=== PATIENT | male | born 1950 | race Caucasian/White ===

== ENCOUNTER 2021-11-21 16:17 | Inpatient (IN) | payer OTHER, MEDICAID ==
[~2021-11-21] VITALS: Ht 170.2 cm; Wt 44.0 kg
[~2021-11-21 16:17] MED LIST: CEPH500C16 PO; CLIN300C2 PO; SYN.1 PO
[2021-11-21 16:26] VITALS: BP 140/90
--- NOTE | 2021-11-21 17:50 | NUR ---
71YO MALE PT BIBA FROM [place] FOR HOME C/O N/V AND SOB XTODAY. PT REPORTS N/D SINCE THE MORNING , UNABLE TO GIVE xEPISODES - DENIES BLOOD. UPON ARRIVAL PT ON 15L NC W/ O2 AT 92%. PER [facility] ,AT ARRIVAL PT WAS AT 50-60% W/O OXYGEN. AUDIBLE MONTSERRAT WHEEZING/CRACKLES NOTED. PT DENIES PAIN, DIARRHEA, FEVER OR CHILLS. STATES CHRONIC EPISODES OF N/V THAT WILL SELF RELIEVE. PT AAOX4, EVEN AND UNLABORED BREATHIHNG. PT ON TRACK RIDER. HOB POSITIONED PER COMFORT, BED RAILS UP X2. HX: THROAT CANCER, COPD ALLERGIES: PENICILLIN
--- NOTE | 2021-11-21 18:06 | NUR ---
MD MARCOS AT BEDSIDE FOR EVALUATION
[2021-11-21] MEDS ORDERED: methylPREDNISolone SS 125 MG/2 ML VIAL IVP ONE (18:10)
[2021-11-21] MEDS ORDERED: ALBUTEROL SULFATE/IPRATROPIU 3 ML SOL IH ONE ×2 (18:10→21:10)
--- NOTE | 2021-11-21 18:19 | NUR ---
LAB AT BEDSIDE
--- NOTE | 2021-11-21 18:25 | NUR ---
RT AT BEDSIDE
[2021-11-21 18:41] LABS: BASOPHILS % (AUTO) 0.4 % (0.0-2.0); EOSINOPHILS % (AUTO) 0.4 % (0.0-4.0); HEMATOCRIT 34.6 % (36-52); HEMOGLOBIN 11.5 g/dL (12.0-18.0); LYMPHOCYTES # (AUTO) 0.1 K/uL (2.0-11.5); LYMPHOCYTES % (AUTO) 4.9 % (20.5-51.1); MEAN CORPUSCULAR HEMOGLOBIN 31 pg (27-31); MEAN CORPUSCULAR HGB CONC 33 g/dL (33-37); MEAN CORPUSCULAR VOLUME 92.1 fL (80-94); MONOCYTES # (AUTO) 0.1 K/uL (0.8-1.0); MONOCYTES % (AUTO) 2.4 % (1.7-9.3); NEUTROPHILS # (AUTO) 2.7 K/uL (1.8-7.7); NEUTROPHILS % (AUTO) 91.9 % (42.2-75.2); PLATELET COUNT (AUTO) 232 K/uL (140-450); RED BLOOD CELL COUNT(AUTO) 3.75 MIL/uL (4.20-6.10); RED CELL DISTRIBUTION WIDTH 15.5 % (11.6-13.7)
[2021-11-21 18:59] LABS: ALBUMIN 3.3 g/dL (3.4-5.0); ANION GAP 12.9 (8-16); ASPARTATE AMINOTRANSFERASE 36 U/L (15-37); CARBON DIOXIDE 30.3 mmol/L (21-32); CHLORIDE 99 mmol/L (98-107); CREATININE 1.4 mg/dL (0.6-1.3); GLUCOSE 84 mg/dL (74-106); POTASSIUM 4.2 mmol/L (3.5-5.1); SODIUM SERUM 138 mmol/L (136-145); TOTAL BILIRUBIN 0.5 mg/dL (0.0-1.0); UREA NITROGEN, BLOOD 39 mg/dL (7-18)
--- NOTE | 2021-11-21 19:19 | NUR ---
REPORT GIVEN TO DAVE SAMPSON. ALL QUESTIONS ANSWERED. TRANSFER OF CARE AT THIS TIME
--- NOTE | 2021-11-21 20:16 | NUR ---
71YR OLD MALE C/O N/V SOB. PT ON 8L OF O2 . SPO2 92% 8L. NO DISTRESS NOTED. NO RETRACTIONS TALKING IN FULL SENTENCES. PT ON BEDSIDE RESTORATION SILVERSMITH. HOB ELEVATED. DENIES PAIN. DENIES SOB OR CP . PT STATES OF BEING DIZZY . THIS IS HIS NORM. SKIN WARM AND DRY AND INTACT. RESP EVEN AND UNLABORED. SIDE RAILS UP X2 BED AT LOWEST POSITION. PCN COPD THROAT CA
[2021-11-21] MEDS ORDERED: methylPREDNISolone SS 125 MG/2 ML VIAL ONE (20:40)
--- NOTE | 2021-11-21 20:56 | NUR ---
PT RESTING . ON BEDSIDE CUSTOMER RELATIONS REPRESENTATIVE. RESP EVEN AND UNLABORED.
--- NOTE | 2021-11-21 20:59 | NUR ---
SECOND TROP DRAWN AT BEDSIDE
[2021-11-21] MEDS ORDERED: MAG SULF 2000 MG/WATER PREMIX 50 ML IV ONE (21:10)
--- NOTE | 2021-11-21 21:21 | NUR ---
RT AT BEDSIDE
[2021-11-21] MEDS ORDERED: LEVOFLOXACIN 750 MG/D5W PREMIX 150 ML IV ONE (21:55)
[2021-11-21] MEDS ORDERED: ALBUTEROL SULFATE/IPRATROPIU 3 ML SOL IH PRN (22:20)
--- NOTE | 2021-11-21 22:41 | NUR ---
PATIENT WILL BE ADMITTED TO ICU . DX COPD HYPOXIA
[2021-11-21 22:44] LABS: MAGNESIUM 1.6 mg/dL (1.8-2.4); PHOSPHORUS 4.7 mg/dL (2.5-4.9)
[2021-11-21] MEDS ORDERED: NACL 0.9% 1,000 ML IV ONE (22:45)
[2021-11-21] MEDS ORDERED: cefTRIAXone 1,000 MG VIAL ONE (22:47)
[2021-11-21 23:03] LABS: PROTHROMBIN TIME 10.6 secs (10.8-13.4)
[2021-11-22] VITALS (7 sets, daily range): BP systolic 93–125; BP diastolic 50–69
--- NOTE | 2021-11-22 00:45 | NUR ---
Chart checked and completed.
--- NOTE | 2021-11-22 00:45 | NUR ---
Patient will be admitted to care of DR FLOOD. Admited to ICU Will go to room6. Belongings list completed. Report to WASHER ENGINEER HELPER.
--- NOTE | 2021-11-22 01:00 | NUR ---
RECEIVED PT. FROM ER AND REPORT GIVEN BY CAMILLA ACOSTA. PT. WIDE AWAKE, ALERT, ORIENTED AND VERY PLEASANT PT. ON NASAL CANULA 4L WITH O2 SAT 99%. IV TO LEFT WRIST 24G RUNNING NS BOLUS. HR GOES TO 58 TO 61. PER REPORT PT. IS ON A REGULAR DIET. SKIN DRY AND INTACT. ABLE TO MOVE ALL EXTREMITIES AND PER PT. HE WALK WITH THE HELP OF A WALKER. EYES PERRLA AND LUNGS CLEAR. ABDOMEN SOFT AND NON TENDER. ABLE TO MAKE NEEDS KNOWN. ABLE TO HELP WITH REPOSITIONING AND BEDLOCK FOR SAFETY. PT. STATED THAT HE HAS NO PAIN. WILL CONT. TO MONITOR.
[2021-11-22 05:35] LABS: HEMATOCRIT 28.3 % (36-52); HEMOGLOBIN 9.7 g/dL (12.0-18.0); LYMPHOCYTES # (AUTO) 0.2 K/uL (2.0-11.5); LYMPHOCYTES % (AUTO) 1.6 % (20.5-51.1); MEAN CORPUSCULAR HEMOGLOBIN 32 pg (27-31); MEAN CORPUSCULAR HGB CONC 34 g/dL (33-37); MEAN CORPUSCULAR VOLUME 91.9 fL (80-94); MONOCYTES # (AUTO) 0.4 K/uL (0.8-1.0); MONOCYTES % (AUTO) 3.7 % (1.7-9.3); NEUTROPHILS # (AUTO) 10.2 K/uL (1.8-7.7); NEUTROPHILS % (AUTO) 94.7 % (42.2-75.2); PLATELET COUNT (AUTO) 129 K/uL (140-450); RED BLOOD CELL COUNT(AUTO) 3.08 MIL/uL (4.20-6.10); RED CELL DISTRIBUTION WIDTH 15.2 % (11.6-13.7); WHITE BLOOD COUNT (AUTO) 10.7 K/uL (4.8-10.8)
[2021-11-22 05:48] LABS: ANION GAP 12.2 (8-16); CARBON DIOXIDE 27.2 mmol/L (21-32); CHLORIDE 96 mmol/L (98-107); CREATININE 1.2 mg/dL (0.6-1.3); GLUCOSE 123 mg/dL (74-106); POTASSIUM 4.4 mmol/L (3.5-5.1); SODIUM SERUM 131 mmol/L (136-145); UREA NITROGEN, BLOOD 38 mg/dL (7-18)
[2021-11-22] MEDS: LEVOTHYROXINE 0.1 MG TAB PO SCH (06:24)
--- NOTE | 2021-11-22 07:30 | NUR ---
RECEIVED REPORT FROM OTTONIEL MEDINA. PATIENT STABLE.
[2021-11-22] MEDS ORDERED: LEVOFLOXACIN 500 MG/D5W PREMIX 100 ML IV SCH (08:00)
--- NOTE | 2021-11-22 08:09 | NUR ---
PATIENT HAS BEEN SCREENED AND CATEGORIZED HIGH NUTRITION RISK. PATIENT WILL BE SEEN WITHIN 1-2 DAYS OF ADMISSION. MITCH [address]
--- NOTE | 2021-11-22 08:30 | NUR ---
REPORT GIVEN TO RN. PATIENT TRANSFERRED TO 120A VIA BED.
--- NOTE | 2021-11-22 08:30 | NUR ---
RECEIVED REPORT FROM ICU NURSE FABIO FOR CONTINUITY OF CARE. PT DOWNGRADED TO TELE, CURRENTLY AWAKE AND A/OX3. PT IS BREATHING EVEN, REGULAR, AND UNLABORED ON 2L VIA NC. SKIN IS INTACT. PT IS CONTINENT OF THE BOWEL AND BLADDER AND IS ABLE TO USE URINAL INDEPENDENTLY. IV 24G ON LEFT WRIST CLEAN, DRY, NOT PATENT. PT CURRENTLY DENIES ANY PAIN OR DISTRESS AT THIS TIME. PT TRANSFERRED TO 120A. PT IN STABLE CONDITION.
[2021-11-22] MEDS: methylPREDNISolone SS 40 MG/ML VIAL IVP SCH ×2 (09:28→20:23)
--- NOTE | 2021-11-22 09:30 | NUR ---
NEW IV 24G ON LEFT UPPER ARM AND 22G RIGHT FOREARM INSERTED.
[2021-11-22 09:54] LABS: APPEARANCE,URINE CLEAR (CLEAR); BILIRUBIN,URINE NEGATIVE (NEGATIVE); BLOOD, URINE 1+ (NEGATIVE); COLOR,URINE YELLOW (YELLOW); LEUKOCYTE ESTERASE ,URINE NEGATIVE (NEGATIVE); NITRITE, URINE NEGATIVE (NEGATIVE); UGLUCOSE NEGATIVE (NEGATIVE)
[2021-11-22 10:12] LABS: BARBITURATE, URINE NEGATIVE ng/ml (NEG <=200); BENZODIAZEPINE, URINE NEGATIVE ng/mL (NEG <=200); CANNABINOID, URINE NEGATIVE ng/mL (NEG <=50); COCAINE, URINE NEGATIVE ng/mL (NEG <=300); OPIATE, URINE POSITIVE ng/mL (NEG <=2000); PHENCYCLIDINE SCREEN,URINE NEGATIVE ng/mL (NEG <=25)
[2021-11-22 10:13] LABS: WBC,URINE NONE SEEN /HPF (0-5)
--- NOTE | 2021-11-22 11:49 | NUR ---
PT VISUALLY ASSESSED, CURRENTLY SLEEPING. NO SIGNS OF PAIN OR DISTRESS NOTED.
--- NOTE | 2021-11-22 13:00 | NUR ---
PT VISUALLY ASSESSED. CURRENTLY SLEEPING, NO SIGNS OF PAIN OR DISTRESS NOTED.
--- NOTE | 2021-11-22 13:35 | NUR ---
DC PLANNING SW MET WITH PATIENT AT BEDSIDE TO COMPLETE ASSESSMENT, PATIENT REPORTS HX OF HOMELESSNESS AND REPORTS RESIDING AT [facility] LONG TERM FOR THE LAST 13 MONTHS. PATIENT IDENTIFIES SISTER, SHAWNA KING, EMERGENCY CONTACT AND MDM HOWEVER, WAS UNABLE TO PROVIDE SW WITH CONTACT INFO. PATIENT PROVIDED SW WITH PERMISSION TO CONTACT [facility] TO GATHER COLLATERAL INFORMATION WELL SISTERS CONTACT INFO. PRIOR TO BEING HOMELESS PATIENT REPORTS LIVING ALONE IN [place] BEFORE SELLING HIS PROPERTY ABOUT A YR OR TWO AGO. PATIENT REPORTS BEING INCONSISTENT WITH MEETING WITH PCP AND REPORTS LAST VISIT THREE YEARS AGO. PATIENT REPORTS TAKING MEDICATION, HOWEVER, REPORTS THAT HE HAS BEEN NON COMPLIANT WITH RX, HE HAS RECENTLY RAN OUT AND HAS NOT HAD PRESCRIPTION FILLED. PATIENT REPORTS LAST REFILL OF RX WAS 1 MONTH AGO. PATIENT REPORTS THAT HE TYPICALLY PICKS UP MEDICATION FROM [facility], WHEN NEEDED. SW TO PROVIDE PATIENT WITH LOW COST RX RESOURCES WELL LOW COST HEALTH PROVIDER RESOURCES. PATIENT REPORTS INCOME SOURCE SSI WHICH HIS SISTER AIDS IN MANAGING. PATIENT REPORTS BEING AMBULATORY W/ DME ASSISTANCE; FWW & WC. PATIENT DENIES MENTAL HEALTH HX. PATIENT REPORTS HX OF SUBSTANCE USE AND ADAMANTLY DENIES CURRENT USE DESPITE TESTING POSITIVE FOR OPIATE AND AMPHETAMINE WHEN ADMITTED TO [facility]. PATIENT REPORTS BEING SOBER FOR 25-30 YRS. PRIMARY SUBSTANCE OF CHOICE; HEROINE AND ALCOHOL WHICH HE REPORTS USING FOR WELL OVER 20 YRS. SW PROVIDED PATIENT WITH PSYCHOEDUCATION ON LONGER TERM USE OF ILLICIT SUBSTANCE USE. PATIENT WAS RECEPTIVE HOWEVER DENIED CURRENT USE. PATIENT REPORTS ADEQUATE FAMILY SUPPORT (CHILDREN &SISTER). PT DENIES HX OF DIALYSIS TX. PT REPORTS SNF PLACEMENT IN THE PAST AND REPORTS THAT HE DID NOT LIKE IT AND LEFT AFTER ONE WEEK. PATIENT REPORTS DC PLAN IS TO RETURN TO HOMELESS LONG TERM; [facility]. PATIENT UNCLEAR HOW LONG BED IS HELD, SW TO FOLLOW UP WITH LONG TERM. SW OUTREACHED TO [facility] [phone] TO GATHER COLLATERAL INFORMATION AND TO INQUIRE ON BED HOLD FOR PATIENT. PHONE CONTINUES TO RING WITH NO ANSWER, UNABLE TO LEAVE VM. Addendum: 11/23/21 at 1418 by Kirill STINSON PROVIDED PATIENT WITH HOMELESS RESOURCES, EMERGENCY ASSISTANCE , SUBSTANCE ABUSE , LOW COST RX MEDICATION , LOW COST HEALTH PROVIDER & LOW COST HOUSING RESOURCES. PATIENT ACCEPTED RESOURCES.
[2021-11-22] MEDS: MIDODRINE 5 MG TAB PO SCH ×2 (14:12→19:13)
--- NOTE | 2021-11-22 14:53 | NUR ---
11/22/21 RD INITIAL ASSESSMENT COMPLETED PLEASE REFER TO NUTRITION ASSESSMENT UNDER CARE ACTIVITY FOR ESTIMATED NUTRITIONAL NEEDS. 1. RECOMMEND REGULAR, MECHANICAL SOFT DIET + ENSURE TID FOR NUTRITION SUPPORT TOLERATED 2. MONITOR PO INTAKE AND GI SYMPTOMS 3. RD TO FOLLOW-UP 3-5 DAYS, MODERATE RISK REVIEWED BY MITCH AGUILLON RD
--- NOTE | 2021-11-22 15:00 | NUR ---
PT VISUALLY ASSESSED. CURRENTLY SLEEPING, NO SIGNS OF PAIN OR DISTRESS NOTED.
--- NOTE | 2021-11-22 17:00 | NUR ---
PT VISUALLY ASSESSED, NO SIGNS OF PAIN OR DISTRESS NOTED.
--- NOTE | 2021-11-22 19:12 | NUR ---
ENDORSED PT TO NIGHTSHIFT NURSE KNIGHT FOR CONTINUITY OF CARE. PT IN STABLE CONDITION.
--- NOTE | 2021-11-22 19:15 | NUR ---
RECEIVED PATIENT IN BED, AWAKE,ALERT AND ORIENTED. EATING DINNER AT THIS TIME. DENIES PAIN. DENIES SHORTNESS OF BREATH. SKIN WARM AND DRY TO TOUCH. BED IN THE LOWEST AND LOCKED POSITION FOR SAFETY, CALL LIGHT IN REACH, INSTRUCTED TO CALL IF ASSISTANCE IS NEEDED, BED ALARM ON.
--- NOTE | 2021-11-22 20:30 | NUR ---
PATIENT BACK FRO CT SCAN, DENIES PAIN. CALL LIGHT IN REACH. Addendum: 11/23/21 at 0036 by Tere Bonilla RN WRONG TIME- PATIENT BACK FROM CT SCAN AT 2050.
--- NOTE | 2021-11-22 20:51 | NUR ---
PATIENT WENT FOR CT SCAN ORDERED. Addendum: 11/23/21 at 0036 by Tere Bonilla RN WRONG TIME- PATIENT WENT TO CT SCAN AT 2030.
[2021-11-23] VITALS: BP 122/60
--- NOTE | 2021-11-23 00:35 | NUR ---
PATIENT ASLEEP. BREATHING EVEN AND UNLABORED. CALL LIGHT IN REACH.
[2021-11-23 04:00] VITALS: BP 152/80
--- NOTE | 2021-11-23 04:15 | NUR ---
PATIENT IS AWAKE, ALERT AND ORIENTED. DENIES PAIN. CALL LIGHT WITHIN REACH.
[2021-11-23] MEDS: LEVOTHYROXINE 0.1 MG TAB PO SCH (05:49)
[2021-11-23] MEDS: MIDODRINE 5 MG TAB PO SCH ×3 (06:04→18:20)
[2021-11-23 06:15] LABS: BASOPHILS % (AUTO) 0.1 % (0.0-2.0); HEMOGLOBIN 10.2 g/dL (12.0-18.0); LYMPHOCYTES # (AUTO) 0.3 K/uL (2.0-11.5); LYMPHOCYTES % (AUTO) 1.5 % (20.5-51.1); MEAN CORPUSCULAR HEMOGLOBIN 31 pg (27-31); MEAN CORPUSCULAR HGB CONC 34 g/dL (33-37); MEAN CORPUSCULAR VOLUME 91.1 fL (80-94); MONOCYTES # (AUTO) 0.5 K/uL (0.8-1.0); MONOCYTES % (AUTO) 2.8 % (1.7-9.3); NEUTROPHILS # (AUTO) 16.6 K/uL (1.8-7.7); NEUTROPHILS % (AUTO) 95.6 % (42.2-75.2); PLATELET COUNT (AUTO) 174 K/uL (140-450); RED CELL DISTRIBUTION WIDTH 15.3 % (11.6-13.7); WHITE BLOOD COUNT (AUTO) 17.3 K/uL (4.8-10.8)
--- NOTE | 2021-11-23 06:20 | NUR ---
ALL NEEDS ATTENDED TO. NO DISTRESS NOTED. SAFETY PRECAUTIONS MAINTAINED DURING THE SHIFT, CALL LIGHT REMAINED WITHIN REACH.
--- NOTE | 2021-11-23 07:21 | NUR ---
ENDORSED TO AM RN FOR CONTINUITY OF CARE.
[2021-11-23 07:23] LABS: ANION GAP 11.9 (8-16); CARBON DIOXIDE 27.1 mmol/L (21-32); CHLORIDE 96 mmol/L (98-107); GLUCOSE 158 mg/dL (74-106); SODIUM SERUM 130 mmol/L (136-145); UREA NITROGEN, BLOOD 44 mg/dL (7-18)
[2021-11-23 07:55] LABS: CREATININE 0.9 mg/dL (0.6-1.3)
[2021-11-23 08:00] VITALS: BP 160/75
[2021-11-23] MEDS: LEVOFLOXACIN 250 MG/D5 PREMIX 100 ML IV SCH (08:56)
[2021-11-23] MEDS: methylPREDNISolone SS 40 MG/ML VIAL IVP SCH ×2 (08:57→21:27)
--- NOTE | 2021-11-23 09:00 | NUR ---
ALL SCHEDULED MEDS GIVEN. PT IS STABLE. NO DISTRESS NOTED. WILL CONTINUE TO MONITOR.
--- NOTE | 2021-11-23 11:45 | NUR ---
CHECKED ON PATIENT. PT IS STABLE. NO DISTRESS NOTED. WILL CONTINUE TO MONITOR.
[2021-11-23 12:00] VITALS: BP 152/85
[2021-11-23] MEDS: MUPIROCIN CA NASAL 2% 1GM TUBE NS SCH (13:54)
[2021-11-23] MEDS: CHLORHEXADINE GLUC 2% CLOTH TP SCH (13:55)
--- NOTE | 2021-11-23 14:00 | NUR ---
ALL SCHEDULED MEDS GIVEN. PT IS STABLE. NO DISTRESS NOTED. WILL CONTINUE TO MONITOR.
[2021-11-23 16:00] VITALS: BP 145/86
--- NOTE | 2021-11-23 19:17 | NUR ---
ENDORSED TO WELLNESS DIRECTOR NURSE FOR CONTINUITY OF CARE. PT IS STABLE.
[2021-11-23 20:00] VITALS: BP 146/74
[2021-11-24] VITALS: BP 131/68
[2021-11-24 04:00] VITALS: BP 138/71
[2021-11-24] MEDS: LEVOTHYROXINE 0.1 MG TAB PO SCH (06:11)
[2021-11-24] MEDS: MIDODRINE 5 MG TAB PO SCH ×2 (06:12→13:00)
--- NOTE | 2021-11-24 07:30 | NUR ---
RECEIVED REPORT FROM HANDLE FINISHER NURSE FOR CONTINUITY OF CARE. PT AWAKE, IN BED. RESPIRATIONS EVEN AND UNLABORED ON 1L NC. NO DISTRESS NOTED. PT ON PERMIT TECHNICIAN. IV SITE ON KAMERON, 22G AND RFA, 24G SL. CALL LIGHT WITHIN REACH. SAFETY PRECAUTIONS IN PLACE. WILL CONTINUE TO MONITOR.
[2021-11-24 08:00] VITALS: BP 152/101
--- NOTE | 2021-11-24 08:15 | NUR ---
PT RECEIVED FROM [facility] RT ON SUPPLEMENTAL OXYGEN OF 1 LITER NASAL CANNULA, PT SEEN IN NO RESPIRATORY DISTRESS IN SEMIFOWLERS POSITION IN BED. PT IS SATING 96% AND WILL CONTINUE TO MONITOR.
[2021-11-24] MEDS: LEVOFLOXACIN 250 MG/D5 PREMIX 100 ML IV SCH (08:36)
[2021-11-24] MEDS: methylPREDNISolone SS 40 MG/ML VIAL IVP SCH (08:36)
--- NOTE | 2021-11-24 08:36 | NUR ---
IV MEDS ADMINISTERED BY OTTONIEL SHIPMAN. NO ADVERSE REACTION NOTED. WILL CONTINUE TO MONITOR.
[2021-11-24] MEDS ORDERED: HYDROcodone/APAP 5/325 MG 1 TAB TAB PO PRN (08:55)
--- NOTE | 2021-11-24 10:35 | NUR ---
PT IN BED,AWAKE, RESTING. NO DISTRESS NOTED. CALL LIGHT WITHIN REACH. SAFETY PRECAUTIONS IN PLACE. WILL CONTINUE TO MONITOR.
[2021-11-24] MEDS ORDERED: PRED10TA99 PO (11:01)
[2021-11-24] MEDS ORDERED: LEVO750T75 PO (11:01)
[2021-11-24] MEDS ORDERED: ALBU0.0912 IH (11:04)
[2021-11-24] MEDS ORDERED: MECL-303 PO (11:04)
[2021-11-24 12:00] VITALS: BP 139/85
[2021-11-24] MEDS: MUPIROCIN CA NASAL 2% 1GM TUBE NS SCH (13:28)
[2021-11-24] MEDS: CHLORHEXADINE GLUC 2% CLOTH TP SCH (13:28)
--- NOTE | 2021-11-24 13:29 | NUR ---
NON-ADMIT MIDODRINE. VS 139/85. WILL CONTINUE TO MONITOR.
[2021-11-24 14:16] VITALS: BP 139/85
--- NOTE | 2021-11-24 14:29 | NUR ---
INFORMED PT ABOUT THE DC ORDER. PT STATED HE'S GOING BACK TO [facility] [place]. PT A&O4, ABLE TO AMBULATE. WILL SET-UP UBER RIDE ONCE READY TO LEAVE.
--- NOTE | 2021-11-24 16:30 | NUR ---
DISCHARGE PAPERBACK TO [facility] [place]. PT WHEELED OUT BY [facility] STAFF VIA WHEELCHAIR, PT ABLE TO AMBULATE AND TRANSFER. DC PAPERS DISCUSSED WITH THE PT. PT LOOKING FOR HIS WALKER. INFORMED PT THAT HE DIDN'T BRING A WALKER WHEN HE GOT ADMITTED AND THAT HE WAS BROUGHT BY AN AMBULANCE TO ER. CONFIRMED WITH ER, NO WALKER LEFT IN ER WELL IN SECURITY. PT VERBALIZED UNDERSTANDING AND SIGN PT DC BELONGINGS FORM. REMOVED IV CATHETERS INTACT. REMOVED ID WRIST BAND. ALL BELONGINGS TAKEN UPON DC. PT IS STABLE.
== END 2021-11-24 16:30 | disposition home or self-care (01) | DRG 193 ==
LOC: MED 16:17 → MTU 22:17 → MIC 22:17 → MTU 11-22 08:30
PROVIDERS: ADMIT Student in an Organized Health Care Education/Training Program; ATTEND Student in an Organized Health Care Education/Training Program
DX: J18.1 Lobar pneumonia, unspecified organism (principal); G92.9 Unspecified toxic encephalopathy; J96.01 Acute respiratory failure with hypoxia; N17.0 Acute kidney failure with tubular necrosis; J44.1 Chronic obstructive pulmonary disease with (acute) exacerbation; E44.1 Mild protein-calorie malnutrition; E87.1 Hypo-osmolality and hyponatremia; Z68.1 Body mass index [BMI] 19.9 or less, adult; E83.51 Hypocalcemia; E16.2 Hypoglycemia, unspecified; Z20.822 Contact with and (suspected) exposure to COVID-19; E03.9 Hypothyroidism, unspecified; E87.8 Other disorders of electrolyte and fluid balance, not elsewhere classified; E86.0 Dehydration; E83.42 Hypomagnesemia; Z88.0 Allergy status to penicillin; Z79.899 Other long term (current) drug therapy; Z85.89 Personal history of malignant neoplasm of other organs and systems; Z72.0 Tobacco use; Z59.00 Homelessness unspecified
CPT/HCPCS: 36415; 71045; 71250; 80048; 80053; 80305; 81001; 82150; 82803; 83690; 83735; 83880; 84100; 84484; 85025; 85610; 85730; 87081; 87086; 93005; 94640; 96365; 96375; 97116; 97163-GP; 99291; J0696; J1956; J2920; J2930; J3475